=== PATIENT | male | born 1990 | race African-American/Black ===

== ENCOUNTER 2016-04-13 20:13 | Emergency (ER) | payer SELFPAY ==
[~2016-04-13] VITALS: Ht 180.3 cm; Wt 111.1 kg
[~2016-04-13 20:13] MED LIST: ACETAMINOP650 MG/20. ORAL; AUGMENTIN 875-1 EAC1 ORAL; BENADRYL25 MG ORAL; CORTISPORIN EAR10 ML BOTH EARS; DOXYCYCLINE MO100 MG ORAL; IBUPROFEN600 MG ORAL; IBUPROFEN800 MG PO; KENALOG 0.1% CR15 GM APPLIC; MEDROL DOSEPAK4 MG ORAL; NKM; PENICILLIN V P500 MG ORAL; ROBAXIN500 MG PO; TAMIFLU75 MG ORAL; TRAMADOL HCL50 MG ORAL
[2016-04-13 21:35] VITALS: BP 116/73
[2016-04-13] MEDS ORDERED: ROBAXIN-750750 MG PO (22:13)
[2016-04-13] MEDS ORDERED: IBUPROFEN600 MG ORAL (22:13)
[2016-04-13 22:43] VITALS: BP 134/86
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
== END 2016-04-13 22:43 | disposition home or self-care (01) ==
LOC: EMR 21:35
DX: S13.9XXA Sprain of joints and ligaments of unspecified parts of neck, initial encounter (principal); S13.4XXA Sprain of ligaments of cervical spine, initial encounter; V43.52XA Car driver injured in collision with other type car in traffic accident, initial encounter; Y93.9 Activity, unspecified; Y92.410 Unspecified street and highway as the place of occurrence of the external cause
CPT/HCPCS: 99284

== ENCOUNTER 2016-10-23 18:26 | Emergency (ER) | payer SELFPAY ==
[~2016-10-23] VITALS: Ht 182.9 cm; Wt 111.1 kg
[~2016-10-23 18:26] MED LIST changes: +ROBAXIN-750750 MG PO
--- NOTE | 2016-10-23 18:54 | Emergency Room Report ---
History of Present Illness General Chief Complaint: Sore Throat Source: Patient Present Illness HPI 26 YO Male presents to the ED c/o : sore throat 8/10 in severity with tonsillar swelling x 2 days, no hx of Fevers, chills, rash, ill contacts, or recent travel. denies cough. pt. reports hx of frequent tonsillitis which usually requires abx treatment. Pt reports pain is exacerbated upon swallowing to 8/10 in severity otherwise pt. reports just mild discomfort due to tonsillar swelling. denies neck pain or stiffness. Denies CP, Palpitations, LOC, AMS, dizziness, Changes in Vision, Sensation, paresthesias, or a sudden severe headache. Allergies: Coded Allergies: No Known Allergies (Unverified , 06/29/12) Patient History Past Medical History: see triage record Past Surgical History: none Pertinent Family History: none Immunizations: UTD Reviewed Nursing Documentation: PMH: Agreed, PSxH: Agreed Nursing Documentation-PMH Past Medical History: No History, Except For Review of Systems All Other Systems: negative except mentioned in HPI Physical Exam Vital Signs Date Time Temp Pulse Resp B/P (MAP) Pulse Ox O2 Delivery O2 Flow Rate FiO2 10/23/16 18:35 98.1 68 18 124/79 98 Room Air Sp02 EP Interpretation: reviewed, normal General Appearance: no apparent distress, alert, GCS 15, non-toxic Head: normocephalic, atraumatic Eyes: bilateral eye normal inspection, bilateral eye PERRL ENT: hearing grossly normal, normal pharynx, no angioedema, normal voice, TMs + canals normal, uvula midline, moist mucus membranes, tonsillar swelling, pharyngeal erythema Neck: full range of motion, supple/symm/no masses Respiratory: lungs clear, normal breath sounds, no respiratory distress, no wheezing, speaking full sentences Cardiovascular #1: regular rate, rhythm Rectal: deferred Musculoskeletal: back normal, gait/station normal, normal range of motion, non- tender Neurologic: alert, oriented x3, responsive, motor strength/tone normal, sensory intact, speech normal Psychiatric: judgement/insight normal, memory normal, mood/affect normal Skin: normal color, no rash, warm/dry, well hydrated Lymphatic: other - subparotid LAD bilaterally Medical Decision Making PA Attestation Dr. Orozco is my supervising Physician whom patient management has been discussed with. Diagnostic Impression: Primary Impression: Pharyngitis, acute Qualified Codes: J02.9 - Acute pharyngitis, unspecified ER Course 26 YO Male presents to the ED c/o : sore throat 8/10 in severity with tonsillar swelling x 2 days, no hx of Fevers, chills, rash, ill contacts, or recent travel. denies cough. pt. reports hx of frequent tonsillitis which usually requires abx treatment. Pt reports pain is exacerbated upon swallowing to 8/10 in severity otherwise pt. reports just mild discomfort due to tonsillar swelling. denies neck pain or stiffness. Denies CP, Palpitations, LOC, AMS, dizziness, Changes in Vision, Sensation, paresthesias, or a sudden severe headache. Ddx considered but are not limited to: pharyngitis, strep, [employer], ludwigs angina, URI Vital signs: are WNL, pt. is afebrile H&PE are most consistent with: pharyngitis presumed Viral. ORDERS: None required at this time as the diagnosis is clinical ED INTERVENTIONS: -Decadron IM -Motrin PO DISCHARGE: At this time pt. is stable for d/c to home. Will provide printed patient care instructions, and any necessary prescriptions. Care plan and follow up instructions have been discussed with the patient prior to discharge. Last Vital Signs Date Time Temp Pulse Resp B/P (MAP) Pulse Ox O2 Delivery O2 Flow Rate FiO2 10/23/16 18:35 98.1 68 18 124/79 98 Room Air Disposition: HOME, SELF-CARE Condition: Stable Scripts Lidocaine HCl 2% Viscous (Lidocaine HCl 2% Viscous) 100 Ml Solution 15 ML ORAL QID, #118 ML Prov: Latanya Mott 10/23/16 Ibuprofen* (MOTRIN*) 600 Mg Tablet 600 MG ORAL THREE TIMES A DAY, #30 TAB 0 Refills Prov: Latanya Mott 10/23/16 Patient Instructions: Tonsillitis, Sore Throat Additional Instructions: Take medications as directed. Follow up with a Primary Care Provider in 3-5 days, even if your symptoms have resolved. --Please review list of primary care clinics, if you do not already have a primary care provider Return sooner to ED if new symptoms occur, or current symptoms become worse. - Please note that this Emergency Department Report was dictated using [employer] technology software, occasionally this can lead to erroneous entry secondary to interpretation by the dictation equipment. Latanya Mott Oct 23, 2016 18:54
[2016-10-23] MEDS ORDERED: LIDOCAINE VISC100 ML ORAL (18:58)
[2016-10-23] MEDS ORDERED: IBUPROFEN600 MG ORAL (18:58)
[2016-10-23] MEDS ORDERED: Dexamethasone 4mg/ml vial IM ONE (19:00)
[2016-10-23 19:07] VITALS: BP 127/81
== END 2016-10-23 19:10 | disposition home or self-care (01) ==
LOC: EMR 19:02
DX: J02.9 Acute pharyngitis, unspecified (principal)
CPT/HCPCS: 96372; 99284; J1100

== ENCOUNTER 2017-07-11 19:55 | Emergency (ER) | payer MEDICAID, OTHER ==
[~2017-07-11] VITALS: Ht 180.3 cm; Wt 106.6 kg
[~2017-07-11 19:55] MED LIST changes: +LIDOCAINE VISC100 ML ORAL
[2017-07-11] MEDS ORDERED: Bicillin LA 1.2 Million Units Syr IM ONE ×2 (20:30→20:37)
[2017-07-11] MEDS ORDERED: IBUPROFEN600 MG ORAL (20:33)
--- NOTE | 2017-07-11 21:03 | Emergency Room Report ---
History of Present Illness General Chief Complaint: Sore Throat Source: Patient Present Illness HPI Patient is a 27-year-old male who presented after increased sore throat. Patient gradual onset of symptoms. Patient prior history of tonsillitis. The patient reports having prior history of tonsillar infections. He denies penicillin allergy. The patient states that he had been having some subjective difficulty swallowing. Allergies: Coded Allergies: No Known Allergies (Unverified , 06/29/12) Patient History Past Medical History: see triage record Reviewed Nursing Documentation: PMH: Agreed; PSxH: Agreed Review of Systems All Other Systems: negative except mentioned in HPI Physical Exam Vital Signs Date Time Temp Pulse Resp B/P (MAP) Pulse Ox O2 Delivery O2 Flow Rate FiO2 07/11/17 20:04 98.4 65 16 119/69 97 Room Air 98.4 General Appearance: well appearing, no apparent distress, alert, GCS 15 Head: normocephalic, atraumatic ENT: hearing grossly normal, normal voice, tonsillar exudate Neck: full range of motion, supple Respiratory: no respiratory distress, speaking full sentences Cardiovascular #1: normal inspection, no edema Gastrointestinal: normal inspection Musculoskeletal: no calf tenderness Neurologic: alert, oriented x3, responsive, helpdesk specialist III-XII nml as tested, normal gait Psychiatric: mood/affect normal Skin: no rash Medical Decision Making Diagnostic Impression: Primary Impression: Tonsillitis ER Course Patient presented for sore throat.Differential diagnosis included but was not limited to meningitis, exudative tonsillitis, retropharyngeal abscess, epiglottitis, strep pharyngitis.The patient appears to have tonsillitis. There does not appear to be any abscess. Patient shows no signs of meningitis. The patient was given IM penicillin. The patient is advised follow-up with ENT.The patient is advised to follow up with primary care doctor in 1-2 days for referral. Patient is advised to return if any worsening condition or if any changes in status that are concerning. This report is dictated with [employer] furnace loader software which may occasionally lead to discrepancies related to use of this software. Last Vital Signs Date Time Temp Pulse Resp B/P (MAP) Pulse Ox O2 Delivery O2 Flow Rate FiO2 07/11/17 20:36 98.4 07/11/17 20:04 65 16 119/69 97 Room Air Status: improved Disposition: HOME, SELF-CARE Condition: Stable Scripts Ibuprofen* (MOTRIN*) 600 Mg Tablet 600 MG ORAL Q8H PRN for For Pain, #20 TAB Prov: Killian Gould MD 07/11/17 Referrals: [facility],REFERRING (PCP) Patient Instructions: Tonsillitis Additional Instructions: Follow up with primary care physician for ENT referral. Killian Gould MD July 11, 2017 21:03
[2017-07-11 21:11] VITALS: BP 121/74
[2017-07-11 21:15] VITALS: BP 119/69
== END 2017-07-11 21:16 | disposition home or self-care (01) ==
LOC: EMR 20:32
DX: J03.90 Acute tonsillitis, unspecified (principal)
CPT/HCPCS: 96372; 99283; J0561

== ENCOUNTER 2017-08-05 00:04 | Emergency (ER) | payer MEDICAID, OTHER ==
[~2017-08-05] VITALS: Ht 182.9 cm; Wt 106.6 kg
[2017-08-05 00:30] VITALS: BP 121/72
[2017-08-05] MEDS ORDERED: Azithromycin 250mg tab ORAL ONE (00:45)
[2017-08-05] MEDS ORDERED: Lidocaine 1% MPF 10mg/ml 5ml INJ ONE (00:45)
--- NOTE | 2017-08-05 01:23 | Emergency Room Report ---
History of Present Illness General Chief Complaint: Male Urogenital Problems Source: Patient Present Illness HPI 27-year-old healthy male presents with one-day of cloudy urine Denies discharge, fever, abdominal pain, rashes, ulcers, lesions, pain, any other complaints Allergies: Coded Allergies: No Known Allergies (Unverified , 06/29/12) Patient History Past Medical History: see triage record Reviewed Nursing Documentation: PMH: Agreed; PSxH: Agreed Nursing Documentation-PMH Past Medical History: No Stated History Review of Systems All Other Systems: negative except mentioned in HPI Physical Exam Vital Signs Date Time Temp Pulse Resp B/P (MAP) Pulse Ox O2 Delivery O2 Flow Rate FiO2 08/05/17 00:07 98.3 54 14 121/72 95 Room Air 98.2 Sp02 EP Interpretation: reviewed, normal General Appearance: no apparent distress, alert, non-toxic Head: normocephalic Eyes: bilateral eye normal inspection, bilateral eye PERRL, bilateral eye EOMI ENT: normal ENT inspection, hearing grossly normal, normal pharynx, no angioedema, normal voice, moist mucus membranes Neck: normal inspection, full range of motion, supple, supple/symm/no masses Respiratory: chest non-tender, lungs clear, normal breath sounds, chest symmetrical, palpation of chest normal Cardiovascular #1: normal peripheral pulses, regular rate, rhythm Cardiovascular #2: 2+ radial (R), 2+ radial (L) Gastrointestinal: normal inspection, non tender, soft, no mass, no guarding, no rebound Rectal: deferred Genitourinary: normal inspection, no CVA tenderness, penis normal, scrotum normal Musculoskeletal: back normal, gait/station normal, normal range of motion, non- tender, no calf tenderness Neurologic: alert, responsive, insulation cutter and former III-XII nml as tested, motor strength/tone normal, sensory intact, speech normal Psychiatric: judgement/insight normal, memory normal, mood/affect normal, no suicidal/homicidal ideation Skin: normal color, no rash, warm/dry, normal turgor Lymphatic: no adenopathy Medical Decision Making Diagnostic Impression: Primary Impression: STI (sexually transmitted infection) ER Course Patient treated empirically for chlamydia, gonorrhea, urine sent to lab Patient counseled to avoid intercourse for 2 weeks Patient counseled to inform partners, as well as for himself to get HIV and syphilis testing at the health department or primary care doctor Patient understood, all questions answered, recommended follow-up with lab testing in the next 3 days Last Vital Signs Date Time Temp Pulse Resp B/P (MAP) Pulse Ox O2 Delivery O2 Flow Rate FiO2 08/05/17 00:30 98.2 14 121/72 95 Room Air 98.2 08/05/17 00:07 54 Disposition: HOME, SELF-CARE Condition: Stable Referrals: [facility],REFERRING (PCP) PATY MILLER M.D Aug 05, 2017 01:23
[2017-08-05 01:27] VITALS: BP 128/74
[2017-08-05 01:30] VITALS: BP 128/74
[2017-08-05 01:32] LABS: APPEARANCE,URINE CLEAR; BILIRUBIN, URINE NEGATIVE (NEGATIVE); COLOR,URINE PALE YELLOW; GLUCOSE, URINE (UA) NEGATIVE (NEGATIVE); KETONES,URINE NEGATIVE (NEGATIVE); LEUKOCYTE ESTERASE ,URINE NEGATIVE (NEGATIVE); NITRITE,URINE NEGATIVE (NEGATIVE); PH,URINE 6 (4.5-8.0); PROTEIN,URINE NEGATIVE (NEGATIVE); UROBILINOGEN,URINE NORMAL MG/DL (0.0-1.0)
== END 2017-08-05 01:35 | disposition home or self-care (01) ==
LOC: EMR 00:53
DX: A64 Unspecified sexually transmitted disease (principal)
CPT/HCPCS: 81003; 87491; 87590; 96372; 99283; J0696; Q0144

== ENCOUNTER 2017-09-30 08:16 | Emergency (ER) | payer MEDICAID ==
[~2017-09-30] VITALS: Ht 180.3 cm; Wt 106.6 kg
[2017-09-30 08:35] VITALS: BP 133/75
--- NOTE | 2017-09-30 09:26 | Emergency Room Report ---
History of Present Illness General Chief Complaint: Skin Rash/Abscess Source: Patient Present Illness HPI 27yo M with no medical problems, Medications, reports that he's been having itching to his bilateral elbow areas and forearms, intermittently, often times morning, with no red areas that come and go sporadically. Currently they are gone away this morning without having taken any medications or done anything to improve. Patient denies any medications, any herbal supplements, using any lotions, cosmetic products, detergents, anything that could be triggering this. He does report he has a friend who had a similar problem recently, and is wondering if something is contagious. He thinks that he may be getting bitten by bugs, he denies any involvement of intertriginous areas, oropharyngeal, genital areas, and again he reports that his symptoms have resolved already today. Allergies: Coded Allergies: No Known Allergies (Unverified , 06/29/12) Patient History Past Medical History: see triage record Reviewed Nursing Documentation: PMH: Agreed; PSxH: Agreed Nursing Documentation-PMH Past Medical History: No History, Except For Review of Systems Constitutional: Denies: fever Eye: Denies: acuity changes Respiratory: Denies: cough, shortness of breath Cardiovascular: Denies: chest pain Gastrointestinal: Denies: nausea, vomiting Skin: Denies: rash Neurological: Denies: headache Physical Exam Vital Signs Date Time Temp Pulse Resp B/P (MAP) Pulse Ox O2 Delivery O2 Flow Rate FiO2 09/30/17 08:29 98.2 50 14 133/75 97 Room Air 98.2 General Appearance: well appearing, no apparent distress Head: normocephalic, atraumatic Eyes: bilateral eye PERRL, bilateral eye EOMI ENT: normal ENT inspection, hearing grossly normal, normal pharynx, no angioedema, normal voice, moist mucus membranes Neck: full range of motion, supple Respiratory: no respiratory distress, speaking full sentences Musculoskeletal: no calf tenderness Neurologic: alert, normal gait Psychiatric: normal inspection, judgement/insight normal, mood/affect normal Skin: normal inspection, normal color, no rash, warm/dry, palpation normal, well hydrated, normal turgor Lymphatic: normal inspection, no adenopathy Medical Decision Making Diagnostic Impression: Primary Impression: Rash and other nonspecific skin eruption ER Course Patient possible localized reaction to bug bites, resolved currently, no obvious explanation, no ahmet gallagher in intertriginous areas, normal palms, normal skin exam everywhere, normal HEENT exam, will discharge with reassurance , recommendation for follow-up with primary doctor for allergy testing if needed and symptoms occur or continued Last Vital Signs Date Time Temp Pulse Resp B/P (MAP) Pulse Ox O2 Delivery O2 Flow Rate FiO2 09/30/17 08:35 98.2 50 14 133/75 97 Room Air 98.2 Disposition: HOME, SELF-CARE Condition: Stable Referrals: NON PHYSICIAN (PCP) Patient Instructions: PATY Sandoval M.D Sep 30, 2017 09:26
[2017-09-30 09:28] VITALS: BP 127/78
== END 2017-09-30 09:30 | disposition home or self-care (01) ==
LOC: EMR 09:06
DX: R21 Rash and other nonspecific skin eruption (principal)
CPT/HCPCS: 99282

== ENCOUNTER 2018-02-05 13:26 | Emergency (ER) | payer MEDICAID ==
[~2018-02-05] VITALS: Ht 180.3 cm; Wt 113.4 kg
[2018-02-05 13:30] VITALS: BP 114/71
[2018-02-05] MEDS ORDERED: Bicillin LA 1.2MMU/2ML SYR IM ONE (14:15)
[2018-02-05] MEDS ORDERED: Dexamethasone 4mg/ml vial IM ONE (14:15)
--- NOTE | 2018-02-05 14:29 | Emergency Room Report ---
History of Present Illness General Chief Complaint: Sore Throat Source: Patient Present Illness HPI 27-year-old male presents to the emergency department complaining of 10 out of 10 in severity sore throat, with fevers and chills 2 and half days. Patient reports history of tonsillitis and has had many recommendations for removal of his tonsils. Patient reports pain with swallowing he denies any relieving factors. Denies ill contacts or recent travel. Denies ear pain, high fevers, lethargy, neck pain/stiffness, irritability, photophobia dehydration, N/V/D. Denies Cp, Palpitations, LOC, AMS, seizures, paresthesias, or changes in Hearing or vision, no Sudden severe BENSON. Denies hx of smoking, asthma or COPD. Allergies: Coded Allergies: No Known Allergies (Unverified , 06/29/12) Patient History Past Medical History: see triage record Past Surgical History: none Pertinent Family History: none Reviewed Nursing Documentation: PMH: Agreed; PSxH: Agreed Nursing Documentation-PMH Past Medical History: No Stated History Review of Systems All Other Systems: negative except mentioned in HPI Physical Exam Vital Signs Date Time Temp Pulse Resp B/P (MAP) Pulse Ox O2 Delivery O2 Flow Rate FiO2 02/05/18 13:30 98.2 74 16 114/71 96 Room Air Sp02 EP Interpretation: reviewed, normal General Appearance: no apparent distress, alert, GCS 15, non-toxic Head: normocephalic, atraumatic Eyes: bilateral eye normal inspection, bilateral eye PERRL ENT: hearing grossly normal, normal voice, tonsillar swelling, pharyngeal erythema, tonsillar exudate Neck: full range of motion Respiratory: lungs clear, normal breath sounds, speaking full sentences Cardiovascular #1: regular rate, rhythm Musculoskeletal: back normal, gait/station normal, normal range of motion, non- tender Neurologic: alert, oriented x3, responsive, motor strength/tone normal, sensory intact, speech normal, grossly normal Psychiatric: judgement/insight normal Skin: normal color, no rash, warm/dry, well hydrated Lymphatic: no adenopathy Medical Decision Making PA Attestation Dr. garcia is my supervising Physician whom patient management has been discussed with. ER Course 27-year-old male presents to the emergency department complaining of 10 out of 10 in severity sore throat, with fevers and chills 2 and half days. Patient reports history of tonsillitis and has had many recommendations for removal of his tonsils. Patient reports pain with swallowing he denies any relieving factors. Denies ill contacts or recent travel. Denies ear pain, high fevers, lethargy, neck pain/stiffness, irritability, photophobia dehydration, N/V/D. Denies Cp, Palpitations, LOC, AMS, seizures, paresthesias, or changes in Hearing or vision, no Sudden severe BENSON. Denies hx of smoking, asthma or COPD. Ddx considered but are not limited to: pharyngitis, strep, ENGAGEMENT SPECIALIST, ludwigs angina, URI Vital signs: are WNL, pt. is afebrile H&PE are most consistent with: pharyngitis presumed strep. ORDERS: None required at this time as the diagnosis is clinical ED INTERVENTIONS: -Decadron 8mg IM -PCN IM -Motrin PO DISCHARGE: At this time pt. is stable for d/c to home. Will provide printed patient care instructions, and any necessary prescriptions. Care plan and follow up instructions have been discussed with the patient prior to discharge. Last Vital Signs Date Time Temp Pulse Resp B/P (MAP) Pulse Ox O2 Delivery O2 Flow Rate FiO2 02/05/18 13:30 98.2 74 16 114/71 96 Room Air Disposition: HOME, SELF-CARE Condition: Stable Patient Instructions: Tonsillitis Additional Instructions: Take medications as directed. Follow up with a Primary Care Provider in 3-5 days, even if your symptoms have resolved. --Please review list of primary care clinics, if you do not already have a primary care provider Return sooner to ED if new symptoms occur, or current symptoms become worse. - Please note that this Emergency Department Report was dictated using [employer] coordinator technology software, occasionally this can lead to erroneous entry secondary to interpretation by the dictation equipment. Latanya Mott Feb 05, 2018 14:29
[2018-02-05] MEDS ORDERED: IBUPROFEN600 MG ORAL (14:30)
[2018-02-05 14:40] VITALS: BP 125/80
== END 2018-02-05 14:40 | disposition home or self-care (01) ==
LOC: EMR 14:02
DX: J02.9 Acute pharyngitis, unspecified (principal)
CPT/HCPCS: 96372; 99283; J0561; J1100

== ENCOUNTER 2018-05-29 05:04 | Emergency (ER) | payer MEDICAID ==
[~2018-05-29] VITALS: Ht 182.9 cm; Wt 108.9 kg
[2018-05-29 05:15] VITALS: BP 114/73
--- NOTE | 2018-05-29 05:22 | Emergency Room Report ---
History of Present Illness General Chief Complaint: Pain Source: Patient Present Illness HPI Patient is a 20-year-old male presented after increased sore throat. Patient reports having onset of symptoms for the past 2 days. He denies any fever. He reports having multiple episodes of tonsillitis in the past. Patient states his had become worse he reported having some increased pain to the left side of his neck. he reports having multiple episodes of tonsillitis in the past but states he has not been on antibiotics for approximately 6 months. He not been vomiting. He reports having some diarrhea. He denies any chest discomfort or cough. Allergies: Coded Allergies: No Known Allergies (Unverified , 06/29/12) Patient History Past Medical History: see triage record Reviewed Nursing Documentation: PMH: Agreed; PSxH: Agreed Nursing Documentation-PMH Past Medical History: No History, Except For Review of Systems All Other Systems: negative except mentioned in HPI Physical Exam Vital Signs Date Time Temp Pulse Resp B/P (MAP) Pulse Ox O2 Delivery O2 Flow Rate FiO2 05/29/18 05:10 98.1 68 12 114/73 94 Room Air General Appearance: well appearing, no apparent distress, alert, GCS 15, non- toxic Head: normocephalic, atraumatic ENT: hearing grossly normal, normal voice Neck: full range of motion, supple Respiratory: chest non-tender, lungs clear, normal breath sounds, no respiratory distress, speaking full sentences Cardiovascular #1: normal inspection, normal peripheral pulses, regular rate, rhythm, no edema Gastrointestinal: normal inspection Genitourinary: normal inspection Musculoskeletal: normal inspection, back normal, no calf tenderness Neurologic: normal inspection, alert, oriented x3, responsive, normal gait Psychiatric: mood/affect normal Skin: no rash Medical Decision Making Diagnostic Impression: Primary Impression: Tonsillitis ER Course Patient presented for sore throat. Differential diagnosis included but was not limited to meningitis, exudative tonsillitis, retropharyngeal abscess, epiglottitis, strep pharyngitis. Patient has a benign exam and does not appear to require any further imaging or laboratory testing at this time. Patient appears to have an exudative tonsillitis. He was noted to have some lymphadenopathy. Patient was given IM penicillin. Patient appears to be stable for outpatient management. There is no evidence of peritonsillar abscess. Patient was advised to recheck with his primary care physician in 2-3 days. Last Vital Signs Date Time Temp Pulse Resp B/P (MAP) Pulse Ox O2 Delivery O2 Flow Rate FiO2 05/29/18 05:10 98.1 68 12 114/73 94 Room Air Status: improved Disposition: HOME, SELF-CARE Condition: Stable Scripts Ibuprofen (Ibuprofen) 600 Mg Tablet 600 MG PO EVERY 8 HOURS for pain, #30 TAB Prov: Killian Gould MD 05/29/18 Lidocaine HCl 2% Viscous (Lidocaine HCl 2% Viscous) 100 Ml Solution 15 ML ORAL QID for pain, #120 ML Prov: Killian Gould MD 05/29/18 Killian Gould MD May 29, 2018 05:22
[2018-05-29] MEDS ORDERED: IBUPROFEN600 M1 PO ×2 (05:23→05:27)
[2018-05-29] MEDS ORDERED: LIDOCAINE VISC100 ML ORAL ×2 (05:23→05:27)
[2018-05-29] MEDS ORDERED: Bicillin LA 1.2MMU/2ML SYR IM ONE (05:30)
[2018-05-29] MEDS ORDERED: Lidocaine 2% Visc 15ml soln ORAL ONE (05:30)
[2018-05-29 05:35] VITALS: BP 114/73
--- NOTE | 2018-05-29 05:35 | NUR ---
ED Nurse Note: recieved pt from home with c/o sore throat and has hx of tonsilitis, pt denies fevers, nausea, vomiting or any other compaints, pt rates pain at 9/10, pt medicated as ordered, no s/s of adverse reaction noted, pt now being d/c to home, pt is ambulatory, given f/u info and after care instructions and re-verbalizes proper medicatin administration, nad noted during d/c to home.
== END 2018-05-29 05:35 | disposition home or self-care (01) ==
LOC: EMR 05:21
DX: J03.90 Acute tonsillitis, unspecified (principal); M54.2 Cervicalgia
CPT/HCPCS: 96372; 99283; J0561

== ENCOUNTER 2018-11-06 19:21 | Emergency (ER) | payer SELFPAY ==
[~2018-11-06] VITALS: Ht 182.9 cm; Wt 106.6 kg
[~2018-11-06 19:21] MED LIST changes: +IBUPROFEN600 M1 PO
--- NOTE | 2018-11-06 19:41 | NUR ---
ED Nurse Note: pt walked in to ED C/O swollen tonsils. pt states he had fever and chills around 0700 today. Curerntly t is 101.5 F. pt is alert x4.
[2018-11-06 19:43] VITALS: BP 136/84
[2018-11-06] MEDS ORDERED: Augmentin 875mg Tab ORAL ONE (20:15)
[2018-11-06] MEDS ORDERED: Dexamethasone 4mg/ml vial IM ONE (20:15)
--- NOTE | 2018-11-06 20:25 | Emergency Room Report ---
History of Present Illness General Chief Complaint: Fever Source: Patient Present Illness HPI 28-year-old male presents to the emergency department complaining of 10 out of 10 severity sore throat, tonsillar swelling and painful swallowing x2 days in addition to fevers at home. Patient reports he has had tonsillitis in the past which presented with similar symptoms. Patient reports hot sweats as well he denies cough, neck pain/stiffness, headache, nasal congestion or rhinorrhea. Patient denies recent travel or ill contacts. He reports swallowing/eating/ drinking exacerbates his pain he has not found any relieving is at this time. Denies changes in his voice. Allergies: Coded Allergies: No Known Allergies (Unverified , 06/29/12) Patient History Past Medical History: see triage record Past Surgical History: none Pertinent Family History: none Immunizations: UTD Reviewed Nursing Documentation: PMH: Agreed; PSxH: Agreed Nursing Documentation-PMH Past Medical History: No History, Except For Review of Systems All Other Systems: negative except mentioned in HPI Physical Exam Vital Signs Date Time Temp Pulse Resp B/P (MAP) Pulse Ox O2 Delivery O2 Flow Rate FiO2 11/06/18 19:34 101.5 90 22 137/90 (106) 96 Room Air 11/06/18 19:43 99 Sp02 EP Interpretation: reviewed, normal General Appearance: no apparent distress, alert, GCS 15, non-toxic Head: normocephalic, atraumatic Eyes: bilateral eye normal inspection, bilateral eye PERRL ENT: hearing grossly normal, normal voice, uvula midline, moist mucus membranes , tonsillar swelling, pharyngeal erythema, other - no exudates Neck: full range of motion, no meningismus, no bony tend Respiratory: chest non-tender, lungs clear, normal breath sounds, speaking full sentences Cardiovascular #1: regular rate, rhythm Musculoskeletal: back normal, gait/station normal, normal range of motion, non- tender Neurologic: alert, oriented x3, responsive, motor strength/tone normal, sensory intact, speech normal, grossly normal Psychiatric: judgement/insight normal Lymphatic: no adenopathy Medical Decision Making PA Attestation Dr. Bro is my supervising Physician whom patient management has been discussed with. Diagnostic Impression: Primary Impression: Tonsillitis ER Course 28-year-old male presents to the emergency department complaining of 10 out of 10 severity sore throat, tonsillar swelling and painful swallowing x2 days in addition to fevers at home. Patient reports he has had tonsillitis in the past which presented with similar symptoms. Patient reports hot sweats as well he denies cough, neck pain/stiffness, headache, nasal congestion or rhinorrhea. Patient denies recent travel or ill contacts. He reports swallowing/eating/ drinking exacerbates his pain he has not found any relieving is at this time. Denies changes in his voice. Ddx considered but are not limited to: pharyngitis, strep, EVENTS MANAGER, ludwigs angina, URI Vital signs: pt. is Febrile H&PE are most consistent with: pharyngitis presumed strep. ORDERS: None required at this time as the diagnosis is clinical ED INTERVENTIONS: 8mg Decadron IM. DISCHARGE: At this time pt. is stable for d/c to home. Will provide printed patient care instructions, and any necessary prescriptions. Care plan and follow up instructions have been discussed with the patient prior to discharge. Last Vital Signs Date Time Temp Pulse Resp B/P (MAP) Pulse Ox O2 Delivery O2 Flow Rate FiO2 11/06/18 19:43 101.5 86 19 136/84 96 Room Air 11/06/18 19:43 99 Disposition: HOME, SELF-CARE Condition: Stable Scripts Ibuprofen* (MOTRIN*) 600 Mg Tablet 600 MG ORAL THREE TIMES A DAY, #30 TAB 0 Refills Prov: Latanya Mott 11/06/18 Acetaminophen With Codeine (T#3) (TYLENOL #3 TAB*) Y Tab 1 TAB ORAL Q6H PRN for For Pain, #9 TAB Prov: Latanya Mott 11/06/18 Lidocaine HCl 2% Viscous (Lidocaine HCl 2% Viscous) 100 Ml Solution 10 ML ORAL QID, #220 ML Prov: Latanya Mott 11/06/18 Amoxicillin/Potassium Clav 875-125* (AUGMENTIN 875-125 TABLET*) 1 Each Tablet 1 TAB ORAL TWICE A DAY for 10 Days, #20 TAB Prov: Latanya Mott 11/06/18 Departure Forms: Return to Work Return to Work Date: Nov 10, 2018 Work Restrictions: None Other Restrictions: May return Sooner if Symptoms have resolved. Return to Full Activity: Nov 10, 2018 Patient Instructions: Tonsillitis Additional Instructions: Take medications as directed. Follow up with a Primary Care Provider in 3-5 days, even if your symptoms have resolved. --Please review list of primary care clinics, if you do not already have a primary care provider Return sooner to ED if new symptoms occur, or current symptoms become worse. Do not drink alcohol, drive, or operate heavy machinery while taking tylenol # 3 as this may cause drowsiness. - Please note that this Emergency Department Report was dictated using [employer] or [employer] manager technology software, occasionally this can lead to erroneous entry secondary to interpretation by the dictation equipment. Latanya Mott Nov 06, 2018 20:25
[2018-11-06] MEDS ORDERED: LIDOCAINE VISC100 ML ORAL (20:27)
[2018-11-06] MEDS ORDERED: IBUPROFEN600 MG ORAL (20:27)
[2018-11-06] MEDS ORDERED: ACETAMINOPHEN-1 EAC1 ORAL (20:27)
[2018-11-06] MEDS ORDERED: AUGMENTIN 875-1 EAC1 ORAL (20:27)
[2018-11-06 20:33] VITALS: BP 135/84
--- NOTE | 2018-11-06 20:33 | NUR ---
ER DISCHARGE NOTE: Patient is cleared to be discharged per ERMD, pt is aox4, on room air, with stable vital signs. pt was given dc and prescription instructions, pt was able to verbalize understanding, pt id band removed without complications. pt is able to ambulate with steady gait. pt took all belongings.
== END 2018-11-06 20:33 | disposition home or self-care (01) ==
LOC: EMR 20:23
DX: J03.90 Acute tonsillitis, unspecified (principal)
CPT/HCPCS: 96372; 99283; J1100

== ENCOUNTER 2018-11-08 20:16 | Emergency (ER) | payer SELFPAY ==
[~2018-11-08] VITALS: Ht 182.9 cm; Wt 106.6 kg
[~2018-11-08 20:16] MED LIST changes: +ACETAMINOPHEN-1 EAC1 ORAL
[2018-11-08 20:38] VITALS: BP 125/70
--- NOTE | 2018-11-08 20:41 | NUR ---
ED Nurse Note: Patient walked in to ER c/o sore throat 11/22.Stated that eas here at [facility] this [place], and ER prescribed antibiotic but it did not help. Patient presented anxious, stated hat can not swalow saliva, AAO x4, HR is 115, other VSS at this time.
[2018-11-08] MEDS ORDERED: Dexamethasone 4mg/ml vial IVP ONE (21:00)
[2018-11-08] MEDS ORDERED: Ketorolac 30mg Inj IV ONE (21:00)
[2018-11-08] MEDS ORDERED: Mylanta II UD 30ml ORAL ONE (21:00)
[2018-11-08] MEDS ORDERED: Dicyclomine HCl 10mg/5ml oral soln ORAL ONE (21:00)
[2018-11-08] MEDS ORDERED: Lidocaine 2% Visc 15ml soln ORAL ONE (21:00)
--- NOTE | 2018-11-08 21:22 | Emergency Room Report ---
History of Present Illness General Chief Complaint: Upper Respiratory Illness Source: Patient Present Illness HPI Patient presents with complaints of sore throat Patient reports very minimal improvement since 2 days ago when he was here Pain continues with swallowing Off-and-on low-grade fevers denies any chest pain denies any cough Patient reports that he has been dealing with Multiple throat infections since 16 years old denies any posterior neck pain denies any change in his voice Pain is 10 out of 10 worse with swallowing Allergies: Coded Allergies: No Known Allergies (Unverified , 06/29/12) Patient History Past Medical History: see triage record Reviewed Nursing Documentation: PMH: Agreed; PSxH: Agreed Review of Systems All Other Systems: negative except mentioned in HPI Physical Exam Vital Signs Date Time Temp Pulse Resp B/P (MAP) Pulse Ox O2 Delivery O2 Flow Rate FiO2 11/08/18 20:23 102.9 112 24 113/67 (82) 98 Room Air Sp02 EP Interpretation: reviewed, normal General Appearance: no apparent distress - However appears mildly uncomfortable with pain upon swallowing Head: normocephalic, atraumatic Eyes: bilateral eye PERRL, bilateral eye EOMI ENT: hearing grossly normal, TMs + canals normal, uvula midline, tonsillar exudate - Bilaterally Neck: full range of motion, supple, no meningismus, no bony tend Respiratory: lungs clear, normal breath sounds, no rhonchi, no respiratory distress, no retraction, no accessory muscle use Cardiovascular #1: normal peripheral pulses, regular rate, rhythm, no edema, no gallop, no JVD, no murmur Gastrointestinal: normal bowel sounds, non tender, soft, no mass, no organomegaly, non-distended, no guarding, no hernia, no pulsatile mass, no rebound Genitourinary: no CVA tenderness Musculoskeletal: normal inspection Neurologic: oriented x3, responsive, food science professor III-XII nml as tested, motor strength/ tone normal, sensory intact Psychiatric: mood/affect normal Skin: no rash Lymphatic: other - Right-sided anterior cervical adenopathy Medical Decision Making Diagnostic Impression: Primary Impression: Tonsillitis Additional Impression: Pharyngitis ER Course Given the patient's history and presentation multiple differentials and consideration including but not limited to retropharyngeal abscess, peritonsillar abscess, pharyngitis, tonsillitis Patient had initial IV established with medications provided for symptomatic improvement Patient was further hydrated as well as he has been having difficulty taking oral intake Patient was observed for prolonged period of time in the emergency room repeat dosing of medication was provided patient at this time complains of continuing discomfort Given this patient had CT imaging obtained Findings are consistent with tonsillitis no other abscess is seen Patient at this time after further hydration and repeat pain education is stable for close outpatient follow-up CT/MRI/US Diagnostic Results CT/MRI/US Diagnostic Results : Impression CT neck IV contrast: Consistent with tonsillitis no abscess Last Vital Signs Date Time Temp Pulse Resp B/P (MAP) Pulse Ox O2 Delivery O2 Flow Rate FiO2 11/08/18 20:38 112 24 Room Air 11/08/18 20:38 99.8 125/70 98 Status: improved Disposition: HOME, SELF-CARE Condition: Improved Scripts Hydrocodone Bit/Acetaminophen 5-325* (NORCO 5-325*) 1 Each Tablet 1 TAB ORAL Q6H PRN for For Pain, #10 TAB 0 Refills Prov: Robby Duarte DO 11/09/18 Methylprednisolone (Methylprednisolone*) 4MG Dspk 4 MG ORAL DIRECTED for 6 Days, #21 EA 0 Refills Day 1: Two tablets before breakfast, one after lunch, one after dinner, and two at bedtime. If started late in the day, take all six tablets at once or divide into two or three doses, unless otherwise directed by prescriber. Day 2: One tablet before breakfast, one after lunch, one after dinner, and two at bedtime Day 3: One tablet before breakfast, one after lunch, one after dinner, and one at bedtime Day 4: One tablet before breakfast, one after lunch, and one at bedtime Day 5: One tablet before breakfast and one at bedtime Day 6: One tablet before breakfast Prov: Robby Duarte DO 11/09/18 Referrals: NOT CHOSEN IPA/MD,REFERRING (PCP) Additional Instructions: Patient is provided with the discharge instructions notified to follow up with primary doctor in the next 2-3 days otherwise return to the er with any worsening symptoms. Please note that this report is being documented using [employer] technology. This can lead to erroneous entry secondary to incorrect interpretation by the dictating instrument. Robby Duarte DO Nov 08, 2018 21:22
[2018-11-08] MEDS ORDERED: NS 110 ML ONE (21:27)
[2018-11-08] MEDS ORDERED: Unasyn 1.5gm Vial ONE (21:27)
[2018-11-08] MEDS ORDERED: Ampicillin/Sulbactam Sod 3 GM in NS 110 ML IVPB ONE (21:30)
[2018-11-08] MEDS ORDERED: Morphine Sulfate 4mg/ml Inj (IV USE ONLY) IVP ONE (23:15)
[2018-11-09] MEDS ORDERED: NORCO 5-325 TA1 EACH ORAL (01:28)
[2018-11-09] MEDS ORDERED: MEDROL DOSEPAK4 MG ORAL (01:28)
[2018-11-09] MEDS ORDERED: Isovue-300 100ml vial INJ PRN (01:45)
[2018-11-09] MEDS ORDERED: Morphine Sulfate 4mg/ml Inj (IV USE ONLY) IVP ONE (03:15)
[2018-11-09] MEDS ORDERED: Ketorolac 30mg Inj IV ONE (03:15)
--- NOTE | 2018-11-09 03:59 | Diagnostic Imaging Report ---
Indication: Neck pain. Technique: Continuous helical imaging of the neck was obtained transaxially from the skull base to the upper thoracic spine during intravenous administration of nonionic contrast. 2-D coronal and sagittal reformatted images were obtained. Total Dose length Product (DLP): [address] Dose Index Volume (CTDIvol): 20 2. mGy Comparison: None Findings: The skull base is unremarkable. Mastoids and visualized paranasal sinuses appear clear. The parotid glands and submandibular glands are unremarkable. There is some prominence of the palatine tonsils bilaterally consistent with tonsillitis. There is no abscess or inflammation identified. Small nodes demonstrated throughout the neck bilaterally. Major vessels enhance normally. The thyroid gland is unremarkable. Supraclavicular region appears clear. The lung apices appear clear. Trachea in subglottic airway, larynx appear unremarkable. IMPRESSION: Evidence of tonsillitis. No abscess. Reactive nodes. The CT scanner at [facility] is accredited by the [employer] and the scans are performed using dose optimization techniques as appropriate to a performed exam including Automatic Exposure control.
[2018-11-09 04:20] VITALS: BP 130/74
--- NOTE | 2018-11-09 04:20 | NUR ---
ER Nurse Note: Pt seen, treated, medically cleared for discharge by ER MD. Discharge instuctions and prescriptions given with repeat verbalization by pt. Emphasized to follow up with primay care provider. All orders completed per ERMD orders. Pt a&ox4, VSS, no signs of distress. ID band removed. IV removed; site clean and bandaged. All questions answered per pt's questions. Pt left with all belongings, left with own transportation.
== END 2018-11-09 04:20 | disposition home or self-care (01) ==
LOC: EMR 20:59
DX: J03.90 Acute tonsillitis, unspecified (principal); M54.2 Cervicalgia
CPT/HCPCS: 70491; 96361; 96365; 96375; 99284; J0295; J1100; J1885; J2270; J2405; Q9967